=== PATIENT | female | born 1970 | race Two or more races ===

== ENCOUNTER 2022-09-22 07:42 | Outpatient (CLI) | payer OTHER | END 2022-09-22 07:55 | disposition home or self-care (01) | LOC: MAMO-SONO 07:42 | PROVIDERS: ATTEND Obstetrics & Gynecology | DX: N60.11 Diffuse cystic mastopathy of right breast (principal); R10.2 Pelvic and perineal pain ==

== ENCOUNTER 2022-09-22 09:41 | Outpatient (CLI) | payer OTHER | END 2022-09-22 09:43 | disposition home or self-care (01) | LOC: LAB 09:41 | PROVIDERS: ATTEND Obstetrics & Gynecology | DX: N91.1 Secondary amenorrhea (principal) ==